=== PATIENT | male | born 1985 | race Two or more races ===

== ENCOUNTER 2023-09-03 15:47 | Emergency (ER) | payer MEDICAID ==
[~2023-09-03] VITALS: Ht 185.4 cm; Wt 80.0 kg
[2023-09-03 16:00] VITALS: TEMP 98.9; O2SAT 98
[2023-09-03 16:15] VITALS: BP 232/150; PULSE 58; RESP 22
[2023-09-03] MEDS ORDERED: MORPHINE SULFATE 10 MG/ML CPJ IM ONE (16:15)
[2023-09-03] MEDS ORDERED: LIDOCAINE HCL 1% 20ML VIAL (Pyxis) INJ INFIL ONE (16:15)
[2023-09-03] MEDS ORDERED: IBUP-2029 MT (17:06)
== END 2023-09-03 17:32 | disposition home or self-care (01) ==
LOC: ER 15:47
DX: S43.084A Other dislocation of right shoulder joint, initial encounter (principal); I10 Essential (primary) hypertension; J45.909 Unspecified asthma, uncomplicated; X58.XXXA Exposure to other specified factors, initial encounter; Y93.89 Activity, other specified; Y92.89 Other specified places as the place of occurrence of the external cause; Y99.8 Other external cause status
CPT/HCPCS: 99285; 23650; 73030; 99152; J3490; J2270; 96372; A4565